=== PATIENT | male | born 1945 | race Caucasian/White ===

== ENCOUNTER 2016-06-20 11:00 | Day surgery (SDC) | payer OTHER ==
[~2016-06-20] VITALS: Ht 172.7 cm; Wt 84.0 kg
[~2016-06-20 11:00] MED LIST: ASPIRIN325 MG PO; ASPIRIN81 M1 PO; COMBIGAN O20 DROP/5 BOTH EYES; DAILY VITAMIN1 EAC8 PO; DESOXIMETASONE15 G1 TP; DILAUDID2 MG PO; FLOMAX0.4 M1 PO; FLOMAX0.4 MG PO; FLOVENT 22120 INHALA IH; GLIPIZIDE5 M1 PO; GLUCOPHAGE1000 MG PO; HYDROCODON-ACE1 EAC7 PO; LANTUS 3 M100 UNITS1 SC; LISINOPRIL5 MG PO; LO-DOSE ASPIRIN81 M2 PO; MEDROL4 MG PO; OMEPRAZOLE20 M2 PO; PROAIR HFA8.5 GM IH; ROLAIDS; SIMVASTATIN80 M1 PO; TRAVOPROST 0.02.5 ML BOTH EYES; TYLENOL EXTRA500 MG PO; VITAMIN D1000 INTUN PO; ZESTRIL5 MG PO; ZOCOR80 MG PO
[2016-06-20 11:44] LABS: POINT-OF-CARE METER ID UU14174212
[2016-06-20 11:58] VITALS: BP 153/73
[2016-06-20 15:36] LABS: POINT-OF-CARE METER ID UU13113675
[2016-06-20 16:28] VITALS: BP 159/76
[2016-06-20 17:15] VITALS: BP 174/80
== END 2016-06-20 17:30 | disposition home or self-care (01) ==
LOC: SDC 11:00
PROVIDERS: Neurological Surgery
PROC: 0QU03JZ Supplement Lumbar Vertebra with Synthetic Substitute, Percutaneous Approach (ICD-10-PCS; principal; 2016-06-20)
DX: S32.010A Wedge compression fracture of first lumbar vertebra, initial encounter for closed fracture (principal); I10 Essential (primary) hypertension; E11.9 Type 2 diabetes mellitus without complications; J44.9 Chronic obstructive pulmonary disease, unspecified; F17.200 Nicotine dependence, unspecified, uncomplicated
CPT/HCPCS: 82948; 94640; J0131; J0330; J1100; J1170; J2250; J2405; J3010

== ENCOUNTER 2016-10-02 12:45 | Emergency (ER) | payer OTHER ==
[~2016-10-02] VITALS: Ht 172.7 cm; Wt 88.3 kg
[2016-10-02] MEDS ORDERED: ZOFRAN ODT4 MG PO (14:18)
[2016-10-02 14:42] VITALS: BP 142/72
== END 2016-10-02 14:43 | disposition home or self-care (01) ==
LOC: EME 12:45
PROC: 0H96XZZ Drainage of Back Skin, External Approach (ICD-10-PCS; principal; 2016-10-02)
DX: L02.212 Cutaneous abscess of back [any part, except buttock and flank] (principal); E11.9 Type 2 diabetes mellitus without complications; E78.5 Hyperlipidemia, unspecified; Z79.4 Long term (current) use of insulin; F17.200 Nicotine dependence, unspecified, uncomplicated
CPT/HCPCS: 99281; 99282